=== PATIENT | female | born 1975 | race Two or more races ===

== ENCOUNTER 2025-06-03 14:21 | Emergency (ER) | payer OTHER ==
[~2025-06-03] VITALS: Ht 175.3 cm; Wt 68.0 kg
[2025-06-03] MEDS ORDERED: CHILDREN'S ASPI81 MG (14:26)
[2025-06-03 15:23] LABS: BASO % 0.4 % (0.1-1.2); EOS # 0.06 (0.04-0.54); EOS % 0.8 % (0.7-7.0); LYMPH # 2.06 (1.18-3.74); LYMPH % 28.0 % (19.3-53.1); MEAN PLATELET VOLUME 8.60 fl (9.4-12.4); MONO # 0.61 (0.24-0.82); MONO % 8.3 % (4.7-12.5); NEUT # 4.59 (1.56-6.13); NEUT % 62.4 % (34.0-71.1); RED CELL DISTRIBUTION WIDTH 12.1 % (11.6-14.4)
[2025-06-03 15:55] LABS: ALT/SGPT 21.0 U/L (12-78); AST/SGOT 21.0 U/L (15-37); BILIRUBIN TOTAL 0.51 mg/dL (0.3-1.2); BUN CREA RATIO 16.0 (7.0-25.0); CREATININE SERUM 0.67 mg/dL (0.55-1.02); GFR 93.55; GLOBULINA 3.7 G/DL (2.4-3.5); GLUCOSE FASTING 88.0 mg/dL (65-100); OSMOLALITY SERUM 284.0 MOSM/KG (275-295)
[2025-06-03 15:58] LABS: URINE APPEARANCE Clear; URINE BILIRRUBIN Negative (NEGATIVE); URINE BLOOD Negative; URINE COLOR Yellow; URINE GLUCOSE Negative (NEGATIVE); URINE KETONE Negative (NEGATIVE); URINE LEUKOCYTE Negative; URINE NITRATE Negative; URINE PROTEIN Negative (NEGATIVE); URINE UROBILINOGEN 0.2 E.U./dl
[2025-06-03 16:00] LABS: URINE BACTERIA 8.4 uL (0.0-1933); URINE WBC 3.9 uL (0.0-23.2)
[2025-06-03 16:05] LABS: URINE CAST 0.00 uL (0.0-1.40); URINE EPITHELIAL CELLS 0.7 uL (0.0-38.8); URINE RBC 0.1 uL (0.0-20.8)
== END 2025-06-03 20:40 | disposition home or self-care (01) ==
LOC: ER 14:21
PROVIDERS: Emergency Medicine
DX: R10.9 Unspecified abdominal pain (principal); I73.89 Other specified peripheral vascular diseases; I82.499 Acute embolism and thrombosis of other specified deep vein of unspecified lower extremity; K30 Functional dyspepsia